=== PATIENT | male | born 1960 | race African-American/Black ===

== ENCOUNTER 2019-12-05 04:18 | Emergency (ER) | payer MEDICAID ==
[~2019-12-05] VITALS: Ht 182.9 cm; Wt 109.1 kg
[~2019-12-05 04:18] MED LIST: OLAN5TAB40 PO
[2019-12-05] MEDS ORDERED: ACETAMINOPHEN 500 MG TABLET PO ONE (04:45)
[2019-12-05] MEDS ORDERED: IBUPROFEN 600 MG TABLET PO ONE (04:45)
[2019-12-05 05:39] VITALS: BP 142/86
== END 2019-12-05 06:06 | disposition home or self-care (01) ==
LOC: EMS 04:18
DX: M54.5 Low back pain (principal); G89.29 Other chronic pain; F17.210 Nicotine dependence, cigarettes, uncomplicated; F19.90 Other psychoactive substance use, unspecified, uncomplicated